=== PATIENT | female | born 1945 | race Caucasian/White ===

== ENCOUNTER 2021-10-11 18:55 | Emergency (ER) | payer OTHER ==
[2021-10-11 19:46] VITALS: BP 120/83; PULSE 89; TEMP 97.9; BMI 26.2
[2021-10-11] MEDS ORDERED: SODIUM CHLORIDE 0.9% 500 ML INFUS.BAG IV ONE (20:41)
[2021-10-11 21:25] LABS: BASO % 0.3 % (0-2.0); EOS % 0.8 % (0-4.5); HEMATOCRIT 40.9 % (32.4-45.2); HEMOGLOBIN 13.7 GM/dL (10.7-15.3); LYMPH % 17.4 % (8-40); MCH 28.4 pg (25.7-33.7); MCHC 33.4 g/dl (32.0-36.0); MEAN PLT VOLUME 9.4 fl (7.5-11.1); MONO % 8.5 % (3.8-10.2); PLATELET COUNT 109 10^3/uL (134-434); RBC 4.81 M/mm3 (3.60-5.2); RDW 15.7 % (11.6-15.6); WHITE BLOOD COUNT 4.2 K/mm3 (4.0-10.0)
[2021-10-11 21:35] LABS: INR 1.34 (0.83-1.09); PROTHROMBIN TIME (PATIENT) 15.4 SEC (9.7-13.0)
[2021-10-11 21:37] LABS: ACTIVATED PTT 38.1 SECONDS (25.2-36.5)
[2021-10-11 21:51] LABS: CALCIUM 8.7 mg/dL (8.5-10.1)
[2021-10-11 21:52] LABS: ALBUMIN 3.6 g/dl (3.4-5.0); BLOOD UREA NITROGEN 14.8 mg/dL (7-18)
[2021-10-11 21:55] LABS: CREATININE 0.9 mg/dL (0.55-1.3)
[2021-10-11 21:56] LABS: BILIRUBIN,TOTAL 0.6 mg/dL (0.2-1)
[2021-10-11 22:15] LABS: EPI CELLS 14 /uL (0-25.1); HYALINE CASTS 10 /uL (0-3.1); URINE APPEARANCE CLEAR; URINE BACTERIA 7 /uL (0-1359); URINE BILIRUBIN 1+ (NEGATIVE); URINE COLOR DK YELLOW; URINE GLUCOSE (UA) NEGATIVE (NEGATIVE); URINE KETONE TRACE (NEGATIVE); URINE LEUK ESTERASE TRACE (NEGATIVE); URINE NITRITE NEGATIVE (NEGATIVE); URINE PROTEIN NEGATIVE (NEGATIVE); URINE RBC 23 /uL (0-23.9); URINE UROBILINOGEN 0.2 mg/dL (0.2-1.0); URINE WBC 19 /uL (0-25.8)
[2021-10-11] MEDS ORDERED: POTASSIUM CHLORIDE TABS 20 MEQ TABLET.ER (FP) PO ONE ×2 (22:52→22:59)
[2021-10-11 23:00] LABS: INFLU A MOLECULAR Negative (Negative); INFLU B MOLECULAR Negative (Negative)
== END 2021-10-12 00:41 | disposition home or self-care (01) ==
LOC: JER 18:55
DX: E86.0 Dehydration (principal)
CPT/HCPCS: 36415; 74177-TC; 80053; 81003; 84484; 85025; 85610; 85730; 87086; 87502; 93005; 93010; 99285-25; C9803-CS; Q9967; U0003; U0005

== ENCOUNTER 2024-04-18 05:10 | Day surgery (SDC) | payer OTHER ==
[2024-04-17 11:58] VITALS: BMI 29.5
[2024-04-18] MEDS ORDERED: BUPIVACAINE HCL/PF 0.25% (2.5MG/ML) 10 ML VIAL ONE (08:03)
[2024-04-18] MEDS ORDERED: HEPARIN NA (PORCINE) 5,000 UNITS/ML 1ML VIAL ONE (08:03)
[2024-04-18] MEDS ORDERED: MIDAZOLAM HCL 2 MG/2 ML SINGLE DOSE VIAL ONE (09:29)
[2024-04-18] MEDS ORDERED: ROCURONIUM BROMIDE 50 MG/5 ML SYRINGE ONE ×2 (09:30→11:19)
[2024-04-18] MEDS ORDERED: PROPOFOL 40 ML ONE (09:30)
[2024-04-18] MEDS ORDERED: SUCCINYLCHOLINE CHLORIDE 200 MG/10 ML SYRINGE ONE (09:31)
[2024-04-18] MEDS: ceFAZolin SODIUM 1 GM VIAL IVPB ONE (09:50)
[2024-04-18] MEDS: BUPIVACAINE HCL/PF 0.25% (2.5MG/ML) 10 ML VIAL IJ ONE (10:19)
[2024-04-18] MEDS ORDERED: SUGAMMADEX SODIUM 200 MG/2 ML VIAL ONE (11:27)
[2024-04-18] MEDS ORDERED: ONDANSETRON 4 MG/2 ML VIAL IVPUSH PRN (12:41)
[2024-04-18] MEDS: LACTATED RINGERS SOLUTION 1,000 ML IV SCH (12:47)
[2024-04-18] MEDS ORDERED: oxyCODONE HCL 5 MG TABLET ONE (14:43)
[2024-04-18] MEDS: oxyCODONE HCL 5 MG TABLET PO PRN (14:53)
[2024-04-18 15:05] VITALS: RESP 20; TEMP 96.9
[2024-04-18 15:37] VITALS: BP 142/76
[2024-04-18 17:03] VITALS: PULSE 81
== END 2024-04-18 16:50 | disposition home or self-care (01) ==
LOC: JASU-SURG 05:10
PROVIDERS: ATTEND Surgery
PROC: 8E0W4CZ Robotic Assisted Procedure of Trunk Region, Percutaneous Endoscopic Approach (ICD-10-PCS; 2024-04-18)
PROC: 0YU54JZ Supplement Right Inguinal Region with Synthetic Substitute, Percutaneous Endoscopic Approach (ICD-10-PCS; principal; 2024-04-18 09:30)
DX: K40.90 Unilateral inguinal hernia, without obstruction or gangrene, not specified as recurrent (principal); D17.1 Benign lipomatous neoplasm of skin and subcutaneous tissue of trunk
CPT/HCPCS: 49650; S2900; 86850; 86900; 86901; 88304-TC; 94760; C1781; J1644